=== PATIENT | female | born 1955 | race Caucasian/White ===

== ENCOUNTER 2016-09-25 10:09 | Outpatient (CLI) | payer OTHER ==
--- NOTE | 2016-09-25 10:48 | DIAGNOSTIC IMAGING REPORT ---
PROCEDURE: MG BILATERAL SCREENING W/CAD INDICATION: Screening. Family history breast carcinoma (cousin). TECHNIQUE: Bilateral CC and MLO digital views. COMPARISON: None available. FINDINGS: Computer-aided detection applied. Moderately dense with a few dystrophic calcifications. IMPRESSION: 1. Probable negative mammogram. Comparison with prior outside studies is recommended to confirm stability. These will be sent for. If and when these become available, an addendum will be issued to this report. RESULT CODE: 0- Prior images needed. A. A negative report should not delay biopsy if a dominant or clinically suspicious mass is present. 10-15% of cancers are not identified by x-ray. B. A negative report may reinforce clinical impression. C. Adenosis and dense breasts may obscure an underlying neoplasm. D. False positive reports average 6-10%. E.. A yearly screening mammogram is recommended. A reminder letter will be scheduled.
== END 2016-09-25 23:00 | disposition home or self-care (01) ==
LOC: MAM SRH 10:09
DX: Z12.31 Encounter for screening mammogram for malignant neoplasm of breast (principal)